=== PATIENT | female | born 1950 | race Caucasian/White ===

== ENCOUNTER 2017-07-28 11:56 | Emergency (ER) | payer OTHER ==
[~2017-07-28] VITALS: Ht 162.6 cm; Wt 72.3 kg
[2017-07-28 11:59] VITALS: BP 184/93; PULSE 103; RESP 16; TEMP 97.5; O2SAT 96
[2017-07-28] MEDS ORDERED: ASPI-516 CHEW (12:07)
[2017-07-28] MEDS ORDERED: PRED-503 PO (12:12)
[2017-07-28] MEDS ORDERED: BACT800T5 PO (12:12)
--- NOTE | 2017-07-28 12:12 | PD ---
HPI Chief Complaint: Skin Problem Time Seen by Provider: 12:08 Travel History International Travel<30 days: No Contact w/Intl Traveler<30days: No Traveled to known affect area: No History of Present Illness HPI 67-year-old female presents to the emergency department with complaint of multiple itchy bumps to bilateral lower legs and left foot for the past 2-3 weeks. [place] and could be getting bitten by some bugs. She said she vomited the house and sprayed the bed for bedbugs, but there is always concern of insects. She thinks she got bit by a spider couple weeks ago. Denies fever, vomiting. Denies paresthesias, loss of sensation to bilateral lower extremities. Denies airway edema, tongue edema, difficulty breathing. Has tried topical cortisone cream, calamine gel for symptom management with minimal relief. Says itching is worse at night. Has not tried any other treatments or medications for her symptoms. No known aggravating or relieving factors. Up-to-date on vaccinations. No primary care provider. Allergies to cortisone, but states she has been using cortisone cream with no complication. Has no other medical complaints. No other modifying factors or associated signs and symptoms. PFSH Past Medical History COPD: Yes Respiratory: Yes (COPD) Past Surgical History Other Surgery: Yes (PLANTAR FASCITIS) Social History Alcohol Use: No Tobacco Use: No Substance Use: No Allergies-Medications (Allergen,Severity, Reaction): Coded Allergies: cortisone (Verified Allergy, Severe, 07/28/17) Reported Meds & Prescriptions Reported Meds & Active Scripts Active Deltasone (Prednisone) 20 Mg Tab 40 Mg PO DAILY 5 Days Bactrim DS (Sulfamethoxazole-Trimethoprim) 800-160 Mg Tab 1 Tab PO BID 7 Days Reported Aspirin 81 Mg Chew 81 Mg CHEW DAILY Review of Systems Except as stated in HPI: all other systems reviewed are Neg Physical Exam Narrative GENERAL: Well-nourished, well-developed femur patient, in no acute distress; afebrile, nontoxic-appearing SKIN: Warm and dry. Bilateral lower legs and left foot with multiple small erythemic bumps with excoriation johnson noted; the area to the top of the left foot appears with possible cellulitis otherwise, no signs of infection; no drainage noted from any of the site; no lymphangitis. HEAD: Atraumatic. Normocephalic. EYES: Pupils equal and round. No scleral icterus. No injection or drainage. ENT: Mucosa pink and moist. Airway patent. NECK: Trachea midline. CARDIOVASCULAR: Regular rate. RESPIRATORY: No accessory muscle use. GASTROINTESTINAL: Rounded. MUSCULOSKELETAL: No obvious deformities. No clubbing. No cyanosis. No edema. NEUROLOGICAL: Awake and alert. Oriented 3. No obvious cranial nerve deficits. Motor grossly within normal limits. Normal speech. PSYCHIATRIC: Appropriate mood and affect; insight and judgment normal. Data Data Last Documented VS Vital Signs Date Time Temp Pulse Resp B/P (MAP) Pulse Ox O2 Delivery O2 Flow Rate FiO2 07/28/17 11:59 97.5 103 16 184/93 (123) 96 Orders Orders Ed Discharge Order (07/28/17 12:12) [facility] Medical Decision Making Medical Screen Exam Complete: Yes Emergency Medical Condition: Yes Medical Record Reviewed: Yes Differential Diagnosis Insect bites, bedbug bites, hives Narrative Course 67-year-old female with multiple small bumps to bilateral lower legs and left foot that appear to be consistent with bug bites. There is concern of cellulitis to the top of the left foot. Patient is afebrile and nontoxic- appearing. Denies fever, vomiting. Deltasone and Bactrim prescribed for home. Instructed patient to take Benadryl as directed and as needed for rash/ itching. Discussed bedbugs. Instructed patient to follow-up with dermatology. instructed patient to follow up with primary care provider. Patient verbalizes understanding and agreement with treatment plan. Patient is medically cleared and stable for discharge. Discussed reasons to return to the emergency department. Patient agrees with treatment plan. The patients vital signs are stable and the patient is stable for outpatient follow-up and treatment. Patient discharged home, stable and in no acute distress. Diagnosis Primary Impression: Rash and other nonspecific skin eruption Referrals: [facility] Phys[facility] Patient Instructions: Acute Rash (ED), Bed Bugs (ED), General Instructions, Insect Bite or Sting (ED) Additional Instructions: Take oral steroids as prescribed [id number] topicals to reduce itch Benadryl as directed and as needed to reduce itch Follow-up with your primary care provider Follow-up with [facility] Return to the emergency department immediately with worsening of symptoms Med/Other Pt SpecificInfo: Prescription(s) given Scripts Prednisone (Deltasone) 20 Mg Tab 40 MG PO DAILY for 5 Days, #10 TAB 0 Refills Prov: Radha Castellon 07/28/17 Sulfamethoxazole-Trimethoprim (Bactrim DS) 800-160 Mg Tab 1 TAB PO BID for Infection for 7 Days, #14 TAB 0 Refills Prov: Radha Castellon 07/28/17 Disposition: 01 DISCHARGE HOME Condition: Stable Radha Castellon Jul 28, 2017 12:12
== END 2017-07-28 12:25 | disposition home or self-care (01) ==
LOC: PHEFT 11:56
DX: R21 Rash and other nonspecific skin eruption (principal); J44.9 Chronic obstructive pulmonary disease, unspecified
CPT/HCPCS: 99283